=== PATIENT | male | born 1960 | race Caucasian/White ===

== ENCOUNTER 2018-02-10 09:08 | Day surgery (SDC) | payer BC, OTHER ==
[2018-02-10] MEDS ORDERED: Lactated Ringers 1,000 ML IV SCH (09:15)
[2018-02-10] MEDS ORDERED: Propofol 200 MG/20 ML SDV IV ONE (10:30)
--- NOTE | 2018-02-10 10:48 | PCM.OPNOTE ---
- General Post-Op/Procedure Note Date of Surgery/Procedure: 02/10/18 Operative Procedure(s): c scope with bx Findings: hyperplastic polyp of the cecum Pre Op Diagnosis: screening Post-Op Diagnosis: cecal polyp Anesthesia Technique: MERLYN Primary Surgeon: Deion Jennings Anesthesia Provider: Poppy Rodriguez Pathology: cecal polyp Complications: None Condition: Good Free Text/Narrative:: see dictation
--- NOTE | 2018-02-10 12:20 | OR ---
DATE OF OPERATION: 02/10/2018 SURGEON: Deion Jennings MD PROCEDURE PERFORMED: Colonoscopy with cold forceps biopsy. PREOPERATIVE DIAGNOSIS: Need for screening C-scope. POSTOPERATIVE DIAGNOSIS: Hyperplastic polyp of the cecum. INDICATIONS FOR PROCEDURE: This is a 57-year-old white male who presents for screening colonoscopy. He was offered and accepted same. DESCRIPTION OF OPERATION: After an excellent IV sedation was administered, digital rectal exam was performed. No marked abnormality was noted. Flexible colonoscope was inserted and advanced to the cecum without difficulty. The prep was excellent. The following findings were noted. Ascending colon, in the cecum, hyperplastic-appearing lesion, biopsied with cold biopsy forceps sent for permanent. Transverse colon, unremarkable. Descending colon, unremarkable. Sigmoid and rectum, unremarkable. Colon was deflated. Scope was removed. The patient tolerated the procedure well. Results by letter. /[id number] /[id number]
== END 2018-02-10 11:55 | disposition home or self-care (01) ==
LOC: FB.SDS 09:08
PROVIDERS: ATTEND Surgery
DX: Z12.11 Encounter for screening for malignant neoplasm of colon (principal); D12.0 Benign neoplasm of cecum; M19.90 Unspecified osteoarthritis, unspecified site; Z79.899 Other long term (current) drug therapy; Z87.891 Personal history of nicotine dependence
CPT/HCPCS: 88305; J2704; J7120

== ENCOUNTER 2023-02-22 13:00 | Emergency (ER) | payer BC, OTHER ==
[2023-02-22 13:43] LABS: BASOPHILS ABSOLUTE AUTO 0.1 x10-3/uL (0.0-0.3); BASOPHILS PERCENT AUTO 0.9 % (0.3-3.8); EOSINOPHILS ABSOLUTE AUTO 0.2 x10-3/uL (0.0-0.6); EOSINOPHILS PERCENT AUTO 2.1 % (0.1-6.8); HEMATOCRIT 45.2 % (38.3-50.1); HEMOGLOBIN 15.6 g/dL (12.9-17.7); LYMPHOCYTES ABSOLUTE AUTO 1.8 x10-3/uL (0.5-4.5); LYMPHOCYTES PERCENT AUTO 19.1 % (15.8-45.3); MEAN CORPUSCULAR HEMOGLOBIN 31.3 pg (27.0-33.3); MEAN CORPUSCULAR HGB CONC 34.6 g/dL (28.7-35.3); MEAN CORPUSCULAR VOLUME 90.3 fL (80.8-98.7); MEAN PLATELET VOLUME 8.7 fL (6.7-11.0); MONOCYTES ABSOLUTE AUTO 0.8 x10-3/uL (0.0-1.2); NEUTROPHILS ABSOLUTE AUTO 6.3 x10-3/uL (1.7-6.9); NEUTROPHILS PERCENT AUTO 68.9 % (40.3-71.8); PLATELET COUNT,PLT 173 x10(3)uL (117-477); RED CELL DISTRIBUTION WIDTH 13.4 % (12.4-15.0); WHITE BLOOD CELL COUNT,WBC 9.2 x10-3/uL (3.2-10.1)
[2023-02-22 13:46] LABS: BLOOD UREA NITROGEN,BUN 18 mg/dL (7-18); CALCIUM 8.5 mg/dL (8.6-10.2); CARBON DIOXIDE,CO2 27 mmol/L (21-32); CHLORIDE,CL 105 mmol/L (100-110); EST CRCL DRUG DOSING (CG) 77.57 mL/min; ESTIMATED GFR 86 mL/min (>60); GLUCOSE RANDOM 104 mg/dL (80-116); POTASSIUM,K 3.8 mmol/L (3.5-5.3); SODIUM,NA 139 mmol/L (135-145)
[2023-02-22 13:52] LABS: ALANINE AMINOTRANSFERASE,ALT 38 U/L (12-36); ALBUMIN 3.6 g/dL (3.2-4.6); ALKALINE PHOSPHATASE 75 IU/L (56-112); ASPARTATE AMNIOTRANSFERASE,AST 15 IU/L (5-25); BILIRUBIN TOTAL 0.5 mg/dL (0.1-1.3); PROTEIN TOTAL,TP 7.4 g/dL (6.0-8.0)
[2023-02-22] MEDS: Enoxaparin 120 MG/0.8 ML Syringe SUBCUT ONE (14:29)
[2023-02-22] MEDS: Enoxaparin 40 MG/0.4 ML Syringe ONE (14:29)
[2023-02-22] MEDS: Enoxaparin 80 MG/0.8 ML Syringe SUBCUT ONE (14:29)
[2023-02-22] MEDS: Enoxaparin 40 MG/0.4 ML Syringe SUBCUT ONE (14:29)
[2023-02-22] MEDS: Enoxaparin 80 MG/0.8 ML Syringe ONE (14:29)
== END 2023-02-22 14:41 | disposition home or self-care (01) ==
LOC: FB.ED 13:00
DX: M79.89 Other specified soft tissue disorders (principal); Z79.899 Other long term (current) drug therapy
CPT/HCPCS: 36415; 80053; 85025; 85379; 96372; 99283; 99284; J1650

== ENCOUNTER → 2024-04-11 | Day surgery (SDC) | payer BC, OTHER ==
[~2024-04-11] MED LIST: Lactated Ringers 1,000 ML IV SCH; Lidocaine 2% 100 MG/5 ML Syringe IVPUSH ONE; Propofol 200 MG/20 ML SDV IV ONE; Sodium Chloride 0.9% 10 ML Syringe FLUSH PRN
[2024-04-11] MEDS: Simethicone Drops 40 MG/0.6 ML 30 ML Bottle ONE (09:20)
== END ==
LOC: FB.SDS 07:42
PROVIDERS: ATTEND Surgery
DX: Z12.11 Encounter for screening for malignant neoplasm of colon (principal); K57.30 Diverticulosis of large intestine without perforation or abscess without bleeding; Z80.0 Family history of malignant neoplasm of digestive organs; Z86.0101 Personal history of adenomatous and serrated colon polyps; Z87.891 Personal history of nicotine dependence
CPT/HCPCS: 00811; A9270-GY; J2704